=== PATIENT | male | born 1990 | race Caucasian/White ===

== ENCOUNTER 2016-08-10 15:55 | Emergency (ER) | payer MEDICARE | END 2016-08-10 18:35 | disposition home or self-care (01) | LOC: ER1 15:55 | DX: S02.2XXA Fracture of nasal bones, initial encounter for closed fracture (principal); S13.4XXA Sprain of ligaments of cervical spine, initial encounter; S00.81XA Abrasion of other part of head, initial encounter; I10 Essential (primary) hypertension; F17.210 Nicotine dependence, cigarettes, uncomplicated; Y04.8XXA Assault by other bodily force, initial encounter | CPT/HCPCS: 70450; 70486; 72125; 99284 ==

== ENCOUNTER → 2016-08-22 | Outpatient (CLI) | payer MEDICARE | LOC: KOH-I 13:03 | DX: M25.562 Pain in left knee (principal); M79.605 Pain in left leg | CPT/HCPCS: 73562; 73590 ==

== ENCOUNTER 2021-05-10 11:13 | Emergency (ER) | payer OTHER | END 2021-05-10 11:49 | disposition home or self-care (01) | LOC: ER1 11:13 | DX: U07.1 COVID-19 (principal); F17.200 Nicotine dependence, unspecified, uncomplicated | CPT/HCPCS: 71045; 99283; U0003 ==